=== PATIENT | female | born 2000 | race Caucasian/White ===

== ENCOUNTER 2018-01-16 15:57 | Emergency (ER) | payer OTHER ==
[2018-01-16 16:26] LABS: ABSOLUTE BASOPHIL COUNT 0 /CUMM (0.0-0.2); ABSOLUTE EOSINOPHIL COUNT 0.1 /CUMM (0.0-0.7); ABSOLUTE GRANULOCYTE CT 4.8 /CUMM (1.4-6.5); ABSOLUTE LYMPH COUNT 2.6 /CUMM (1.2-3.4); ABSOLUTE MONOCYTE COUNT 0.6 /CUMM (0.10-0.60); BASOPHIL % 0.3 % (0.0-2.0); EOSINOPHIL % 0.7 % (0-5); GRANULOCYTE % 59.7 % (42.2-75.2); MEAN CORPUSCULAR HGB 30.1 PG (27.0-31.0); MEAN CORPUSCULAR VOLUME 88.5 FL (81.0-99.0); MEAN PLATELET VOLUME 8.6 FL (7.4-10.4); PLATELET COUNT 424 /CUMM (130-400); RBC DISTRIBUTION WIDTH 12.4 % (11.5-14.5); WHITE BLOOD CELL COUNT 8.1 /CUMM (4.8-10.8)
--- NOTE | 2018-01-16 18:38 | ULTRASOUND REPORT ---
EXAMINATION: US ABDOMEN LIMITED CLINICAL INFORMATION: Right upper quadrant and right lower quadrant pain. Presumptive diagnosis of cholecystitis versus appendicitis. COMPARISON: None TECHNIQUE: Real-time imaging of the right upper quadrant abdominal viscera. Evaluation of the right lower quadrant in region of patient's pain was also performed. FINDINGS: PANCREAS: The pancreatic body and portions of the head and tail are visualized and appear unremarkable. Remainder of the pancreas is obscured by overlying bowel gas. LIVER: Normal. The liver demonstrates normal size, contour and echogenicity. No focal lesion or intrahepatic biliary duct dilatation. GALLBLADDER: Normal. The gallbladder is physiologically distended without evidence of stones, sludge, polyps, wall thickening or pericholecystic fluid. COMMON BILE DUCT: Normal in caliber measuring 0.3 cm in diameter. RIGHT KIDNEY: Normal. No hydronephrosis. No renal calculi or focal parenchymal lesions. The kidney measures 11.4 cm in maximum dimension. FREE FLUID: None. RIGHT LOWER QUADRANT AREA OF PAIN: No focal cystic or solid mass or collection is seen. The appendix is not discretely visualized. IMPRESSION: 1. Incomplete view of the pancreatic head and tail due to overlying bowel gas. Visualized portions of pancreas unremarkable. 2. Evaluation of the appendix is non-diagnostic due to overlying gas and stool. No inflammatory changes identified in the right lower quadrant. 3. Otherwise unremarkable right upper quadrant ultrasound.
--- NOTE | 2018-01-16 22:54 | CT SCAN REPORT ---
EXAMINATION: CT ABDOMEN AND PELVIS WITH CONTRAST CLINICAL INFORMATION: Right lower quadrant pain COMPARISON: None. TECHNIQUE: Multidetector volumetric imaging was performed from the superior aspect of the liver through the pubic symphysis following administration of 95 ml of Optiray 320 Sagittal and coronal reformatted images were obtained on the technologist workstation. DLP: 315 mGy-cm FINDINGS: LUNG BASES: Interval linear dependent atelectasis LIVER, GALLBLADDER, AND BILIARY TREE: The liver is normal in size, shape, and attenuation. No focal hepatic lesion or biliary ductal dilatation is present. The gallbladder is unremarkable with no evidence of radiopaque gallstones, gallbladder wall thickening, or obvious pericholecystic inflammatory changes. PANCREAS: Unremarkable. SPLEEN: Unremarkable. ADRENAL GLANDS: Unremarkable. KIDNEYS AND URETERS: The kidneys are normal in size, shape, and attenuation. No hydronephrosis, hydroureter, or calculi seen. No perinephric stranding. BLADDER: Unremarkable. GASTROINTESTINAL TRACT: The small and large bowel are unremarkable. The appendix is unremarkable. No periappendiceal inflammatory changes seen in the right lower quadrant ABDOMINAL WALL: No significant hernia is appreciated. LYMPHOVASCULAR STRUCTURES: No lymphadenopathy. The aorta is unremarkable. PELVIC VISCERA: IUD seen within the uterus. No adnexal mass lesion with physiologic changes seen bilaterally. OSSEOUS STRUCTURES: Unremarkable. IMPRESSION: No acute intra-abdominal process seen. Incidental IUD.
[2018-01-16] MEDS ORDERED: NAPROSYN500 M1 PO (23:31)
[2018-01-16] MEDS ORDERED: ZOFRAN ODT4 M1 SL (23:31)
--- NOTE | 2018-01-16 23:32 | ED GENERAL ADULT ---
History of Present Illness General Chief Complaint: Abdominal Pain/Flank Pain Stated Complaint: ABD PAIN, VOMITING, SEEN AT [facility]. ONE Source: patient Exam Limitations: no limitations Vital Signs & Intake/Output Vital Signs & Intake/Output Vital Signs Date Time Temp Pulse Resp B/P B/P Pulse O2 O2 Flow FiO2 Mean Ox Delivery Rate 01/17 0000 98.2 82 16 115/60 99 01/16 2231 98.3 83 16 114/58 99 Room Air 01/16 1908 98.1 73 16 114/72 100 Room Air 01/16 1601 98.5 80 16 127/88 96 Room Air ED Intake and Output 01/17 0000 01/16 1200 Intake Total 1000 Output Total Balance 1000 Intake, IV 1000 Allergies Coded Allergies: No Known Allergies (01/16/18) Reconcile Medications Dicyclomine HCl 20 MG TABLET 1 TAB PO Q6 PRN abd pain Naproxen (Naprosyn) 500 MG TABLET 1 TAB PO BID PRN pain Ondansetron (Zofran Odt) 4 MG TAB.RAPDIS 1 TAB SL TID PRN nausea Triage Note: PT REFERRED TO ED FROM URGENT CARE FOR FURTHER EVAL OF MID-RIGHT SIDED ABD PAIN X 1 DAY. DENIES F/C, N/V OR CHANGES IN BOWEL OR BLADDER. LMP YESTERDAY. HAS IUD. Triage Nurses Notes Reviewed? yes Onset: Gradual Duration: day(s): Timing: constant : No Patient currently breastfeeds: No HPI: 18-year-old female with a history of IBS presenting with right-sided abdominal pain since yesterday. She reports mid abdominal pain that radiates out to her right upper and right lower quadrants. Pain has no worsening or alleviating factors. The pain has been associated with constant nausea, and one episode of vomiting this morning. She was seen and evaluated at an urgent care who referred her into the emergency department for rule out appendicitis. She is unsure if the pain feels like her usual IBS. Denies fevers, diarrhea, constipation, melena, hematochezia, dysuria, hematuria, urinary urgency/ frequency, vaginal discharge or bleeding. States that her LMP started yesterday , she has an IUD in place and usually only has light spotting with her periods. (Ryan LAGOS,Mariaelena) Past History Travel History Traveled to [place] past 21 day No Medical History Any Pertinent Medical History? see below for history Gastrointestinal: irritable bowel syndrome Surgical History Surgical History: non-contributory Psychosocial History What is your primary language Yakut Tobacco Use: Never used Family History Hx Contributory? No (Mariaelena Williamson) Review of Systems Review of Systems Constitutional: Reports: no symptoms. EENTM: Reports: no symptoms. Respiratory: Reports: no symptoms. Cardiovascular: Reports: no symptoms. GI: Reports: see HPI. Genitourinary: Reports: no symptoms. Musculoskeletal: Reports: no symptoms. Skin: Reports: no symptoms. Neurological/Psychological: Reports: no symptoms. Hematologic/Endocrine: Reports: no symptoms. Immunologic/Allergic: Reports: no symptoms. All Other Systems: Reviewed and Negative (Mariaelena Williamson) Physical Exam Physical Exam General Appearance: well developed/nourished, no apparent distress, alert, awake Comments: Gen.: Well-nourished, well-developed, no acute distress. Head: Normocephalic, atraumatic. Eyes: Normal inspection bilaterally Ears: Normal inspection bilaterally Nose: Normal inspection Neck: Normal inspection Lungs: clear to auscultation bilaterally, normnal breath sounds Heart: regular rate and rhythm Abdomen: soft, nondistended, normal bowel sounds, tender to palpation in the right upper quadrant and right lower quadrant, no rebound or guarding Back: No CVA tenderness Extremities: Normal inspection Neurologic: alert and oriented x3, steady gait Skin: warm and dry Psychiatric: Normal mood and affect, no apparent delusions or hallucinations, behavior appropriate Core Measures ACS in differential dx? No CVA/TIA Diagnosis: No Sepsis Present: No Sepsis Focused Exam Completed? No (Mariaelena Williamson) Progress Differential Diagnoses I considered the following diagnoses in my evaluation of the patient: [IBS flare versus biliary colic versus cholecystitis versus choledocholithiasis versus cholangitis versus appendicitis versus ovarian torsion versus ovarian cyst versus UTI versus cervicitis versus PID] Plan of Care: Orders Procedure Date/time Status Add-on Test (ER Only) 01/16 2225 Active Add-on Test (ER Only) 01/16 2157 Active CULTURE,URINE 01/16 210 Active C-REACTIVE PROTEIN 01/16 1610 Complete URINE 01/16 1603 Complete URINALYSIS 01/16 1603 Complete LIPASE 01/16 1603 Complete LACTIC ACID 01/16 1603 Complete COMPREHENSIVE METABOLIC PANEL 01/16 1603 Complete CBC WITHOUT DIFFERENTIAL 01/16 1603 Complete Laboratory Tests 01/16/182106: Urine Color YEL, Urine Clarity CLEAR, Urine pH 6.0, Ur Specific [place] 1.025, Urine Protein NEG, Urine Ketones TRACE H, Urine Nitrite NEG, Urine Bilirubin NEG, Urine Urobilinogen 0.2, Ur Leukocyte Esterase TRACE H, Ur Microscopic SEDIMENT EXAMINED, Urine RBC RARE, Urine WBC 5-10 H, Ur Epithelial Cells FEW, Urine Bacteria MOD H, Urine Mucus FEW, Urine Hemoglobin TRACE-INTACT, Urine Glucose NEG, Urine Test NEGATIVE 01/16/18 1903: Lactic Acid Cancelled 01/16/18 1610: Anion Gap 10, Estimated GFR > 60, BUN/Creatinine Ratio 18.3, Glucose 93, Lactic Acid 1.2, Calcium 10.1, Total Bilirubin 0.5, AST 17, ALT 24, Alkaline Phosphatase 52, C-Reactive Prot, Quant < 0.5, Total Protein 7.5, Albumin 4.7, Globulin 2.8, Albumin/Globulin Ratio 1.7, Lipase 25, CBC w Diff NO MAN DIFF REQ, RBC 5.20, MCV 88.5, MCH 30.1, MCHC 34.0, RDW 12.4, MPV 8.6, Gran % 59.7, Lymphocytes % 31.5, Monocytes % 7.8, Eosinophils % 0.7, Basophils % 0.3, Absolute Granulocytes 4.8, Absolute Lymphocytes 2.6, Absolute Monocytes 0.6, Absolute Eosinophils 0.1, Absolute Basophils 0 Microbiology 01/16 2107 URINE ROUT: Urine Culture - RES GRAM NEGATIVE RODS Labs unremarkable. UA has a few white blood cells, but patient has no urinary symptoms, urine culture sent, and antibiotics deferred until culture results. US 1. Incomplete view of the pancreatic head and tail due to overlying bowel gas. Visualized portions of pancreas unremarkable. 2. Evaluation of the appendix is non-diagnostic due to overlying gas and stool. No inflammatory changes identified in the right lower quadrant. 3. Otherwise unremarkable right upper quadrant ultrasound. CT scan IMPRESSION: No acute intra-abdominal process seen. Incidental IUD. Reassessment patient still has mild tenderness that does not localize, mostly on the right side of her abdomen, reports her pain is somewhat improved compared to arrival. Nausea has resolved after Zofran and she is tolerating p.o. without difficulty. Suspect either viral syndrome versus IBS flare. Discharge home with naproxen, Bentyl, and Zofran. She was instructed to follow-up with primary care, GI, and OB for further evaluation. Given strict return precautions. Initial ED EKG: none (Mariaelena Williamson) Departure Departure Disposition: HOME OR SELF CARE Condition: Stable Clinical Impression Primary Impression: Abdominal pain Secondary Impressions: Nausea and vomiting Referrals: Maya OBANDO,Tyler Curtis MD,Radha Patient Has No Primary Care Dr (PCP/Family) Additional Instructions: Use naproxen and Bentyl as needed for pain and Zofran as needed for nausea. Follow-up with primary care, OB, and GI for reevaluation. Return to the emergency department for any new or worsening symptoms. Departure Forms: Customer Survey General Discharge Information Prescriptions: Current Visit Scripts Naproxen (Naprosyn) 1 TAB PO BID PRN pain #60 TAB Ondansetron (Zofran Odt) 1 TAB SL TID PRN nausea #20 TAB Dicyclomine HCl 1 TAB PO Q6 PRN abd pain #30 TAB (Mariaelena Williamson) PA/MOBILE APPLICATION DEVELOPMENT LEAD Co-Sign Statement Statement: ED Attending supervision documentation- [] I saw and evaluated the patient. I have also reviewed all the pertinent lab results and diagnostic results. I agree with the findings and the plan of care as documented in the PA's/MOBILE APPLICATION DEVELOPMENT LEAD's documentation. [x] I have reviewed the ED Record and agree with the PA's/MOBILE APPLICATION DEVELOPMENT LEAD's documentation. [] Additions or exceptions (if any) to the PAs/MOBILE APPLICATION DEVELOPMENT LEAD's note and plan are summarized below: [] (Marquis Cheatham DO) Critical Care Note Critical Care Note Critical Care Time: non-applicable (Mariaelena Williamson)
[2018-01-16] MEDS ORDERED: DICYCLOMINE HCL20 M1 PO (23:34)
[2018-01-17] VITALS: BP 115/60
[2018-01-18] MEDS ORDERED: NITROFURANTOIN100 M5 PO (13:58)
== END 2018-01-17 00:13 ==
LOC: ERH 15:57
PROVIDERS: Physician Assistant
DX: R11.2 Nausea with vomiting, unspecified (principal); R10.84 Generalized abdominal pain; K58.9 Irritable bowel syndrome, unspecified
CPT/HCPCS: 74177; 81001; 81025; 87086; 96361; 96374; 96375; J2405